=== PATIENT | female | born 1990 | race Two or more races ===

== ENCOUNTER 2025-07-29 16:47 | Inpatient (IN) | payer OTHER ==
[~2025-07-29] VITALS: Ht 157.5 cm; Wt 81.2 kg
[2025-07-29 16:06] VITALS: BP 134/76
[~2025-07-29 16:47] MED LIST: ADULT LOW DOSE81 M1 PO; LABETALOL HCL100 MG; LEVOTHYROXINE50 MCG PO
[2025-07-29] MEDS ORDERED: LABETALOL HCL 100 MG TABLET PO SCH (16:50)
[2025-07-29] MEDS ORDERED: RINGERS SOLUTION,LACTATED 1,000 ML IV SCH (17:00)
[2025-07-29] MEDS ORDERED: MAGNESIUM SULFATE IN WATER 500 ML IV ONE (17:15)
[2025-07-29 17:54] LABS: INR 1.01
[2025-07-29] MEDS ORDERED: FAMOTIDINE/PF 20 MG/2 ML VIAL IV PUSH SCH (18:00)
[2025-07-29 18:15] LABS: ALT/SGPT 40.0 U/L (12-78); AST/SGOT 37.0 U/L (15-37); BILIRUBIN TOTAL 0.4 mg/dL (0.3-1.2); BUN CREA RATIO 14.0 (7.0-25.0); CREATININE SERUM 0.51 mg/dL (0.55-1.02); GFR 136.45; GLOBULINA 3.6 G/DL (2.4-3.5); GLUCOSE FASTING 83.0 mg/dL (65-100); OSMOLALITY SERUM 275.0 MOSM/KG (275-295)
[2025-07-29 18:41] LABS: BASO % 0.6 % (0.1-1.2); EOS # 0.11 (0.04-0.54); EOS % 1.2 % (0.7-7.0); LYMPH # 1.58 (1.18-3.74); LYMPH % 17.4 % (19.3-53.1); MEAN PLATELET VOLUME 10.20 fl (9.4-12.4); MONO # 0.80 (0.24-0.82); MONO % 8.8 % (4.7-12.5); NEUT # 6.47 (1.56-6.13); NEUT % 71.2 % (34.0-71.1); RED CELL DISTRIBUTION WIDTH 14.0 % (11.6-14.4)
[2025-07-29 21:17] VITALS: BP 133/76
[2025-07-29 23:11] VITALS: BP 127/63
[2025-07-30 00:03] VITALS: BP 81/46
[2025-07-30 00:06] VITALS: BP 115/70
[2025-07-30 03:18] VITALS: BP 121/63
[2025-07-30] MEDS ORDERED: MAGNESIUM SULFATE IN WATER 500 ML IV SCH (07:15)
[2025-07-30 07:24] VITALS: BP 128/76
== END 2025-07-30 10:17 | disposition designated cancer center or children's hospital (05) | DRG 833 ==
LOC: LDR 16:47
PROVIDERS: Obstetrics & Gynecology; ADMIT Obstetrics & Gynecology Gynecology; ATTEND Obstetrics & Gynecology Gynecology
PROC: 4A1HXCZ Monitoring of Products of Conception, Cardiac Rate, External Approach (ICD-10-PCS; principal; 2025-07-29)
DX: O31.22X1 Continuing pregnancy after intrauterine death of one fetus or more, second trimester, fetus 1 (principal); O30.042 Twin pregnancy, dichorionic/diamniotic, second trimester; O31.8X21 Other complications specific to multiple gestation, second trimester, fetus 1; Z3A.25 25 weeks gestation of pregnancy